=== PATIENT | female | born 1940 | race African-American/Black ===

== ENCOUNTER 2017-03-23 11:37 | Emergency (ER) | payer OTHER ==
[~2017-03-23] VITALS: Ht 165.1 cm; Wt 79.4 kg
[2017-03-23] MEDS ORDERED: BP pill (12:11)
[2017-03-23] MEDS ORDERED: HYDROCHLOROTHIA25 MG ORAL (12:11)
[2017-03-23] MEDS ORDERED: [UNRECOGNIZED DRUG - REMARK] (12:11)
[2017-03-23 12:41] LABS: BASOPHILS % (AUTO) 1.5 % (0.0-2.0); EOSINOPHILS % (AUTO) 4.2 % (0.0-3.0); LYMPHOCYTES % (AUTO) 34.3 % (20.0-45.0); MEAN CORPUSCULAR HEMOGLOBIN 31.5 PG (27.0-31.0); MEAN CORPUSCULAR HGB CONC 33.7 G/DL (32.0-36.0); MEAN CORPUSCULAR VOLUME 94 FL (80-99); MEAN PLATELET VOLUME 7.9 FL (6.5-10.1); PLATELET COUNT 219 K/UL (150-450); RED BLOOD COUNT 3.74 M/UL (4.20-5.40); RED CELL DISTRIBUTION WIDTH 12.7 % (11.6-14.8); WHITE BLOOD COUNT 5.9 K/UL (4.8-10.8)
[2017-03-23 12:52] LABS: TROPONIN I < 0.30 ng/mL (<=0.30)
[2017-03-23 12:53] LABS: ALANINE AMINOTRANSFERASE 11 U/L (3-33); ALBUMIN/GLOBULIN RATIO 1.2 (1.0-2.7); ANION GAP 11 (5-15); ASPARTATE AMINO TRANSFERASE 14 U/L (5-40); CALCIUM 9.4 mg/dL (8.6-10.2); CARBON DIOXIDE 27 mEQ/L (20-30); CHLORIDE 100 mEQ/L (98-107); CREATININE 1.2 mg/dL (0.5-0.9); HEMOLYSIS 5; POTASSIUM 3.7 mEQ/L (3.4-4.9); SODIUM 138 mEQ/L (135-145); TOTAL PROTEIN 6.9 g/dL (6.6-8.7)
[2017-03-23 13:03] LABS: CKMB 4.1 ng/mL (< 3.8)
[2017-03-23] MEDS ORDERED: TYLENOL EXTRA500 MG ORAL (13:10)
[2017-03-23 13:17] VITALS: BP 102/58
[2017-03-23 13:20] VITALS: BP 102/58
--- NOTE | 2017-03-23 14:15 | Diagnostic Imaging Report ---
Indication: Dyspnea Comparison: None A single view chest radiograph was obtained. Findings: No definite infiltrate or pulmonary vascular congestion identified. The heart is enlarged. The aorta is mildly enlarged consistent with atherosclerotic vascular disease. The bones are osteopenic. Impression: No acute disease
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
== END 2017-03-23 13:22 | disposition home or self-care (01) ==
LOC: EDBD 11:37 → EMR 13:10
DX: R07.89 Other chest pain (principal); I10 Essential (primary) hypertension; R01.1 Cardiac murmur, unspecified; V43.52XA Car driver injured in collision with other type car in traffic accident, initial encounter; Y92.410 Unspecified street and highway as the place of occurrence of the external cause
CPT/HCPCS: 36415; 71010; 80053; 82550; 82553; 83880; 84484; 85025; 93005; 99283

== ENCOUNTER 2019-10-29 14:46 | Emergency (ER) | payer OTHER ==
[~2019-10-29] VITALS: Ht 165.1 cm; Wt 79.4 kg
[~2019-10-29 14:46] MED LIST: BP pill; HYDROCHLOROTHIA25 MG ORAL; TYLENOL EXTRA500 MG ORAL; [UNRECOGNIZED DRUG - REMARK]
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
[2019-10-29 15:11] VITALS: BP 135/81
[2019-10-29] MEDS ORDERED: MUPIROCIN15 GM TOPIC (15:22)
[2019-10-29] MEDS ORDERED: TYLENOL EXTRA500 MG ORAL (15:22)
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
[2019-10-29 15:28] VITALS: BP 135/81
--- NOTE | 2019-10-29 15:28 | NUR ---
ED Nurse Note: Pt cleared by health care Provider for discharge. DC instructions/prescription was given and explained to pt and verbalized understanding of teachings. All medical deviecs such as ID band removed. Pt is AAO x4, ambulatory and left with all personal belongings.
== END 2019-10-29 15:28 | disposition home or self-care (01) ==
LOC: EMR 15:18
DX: S01.511A Laceration without foreign body of lip, initial encounter (principal); I10 Essential (primary) hypertension; W50.0XXA Accidental hit or strike by another person, initial encounter; Y92.9 Unspecified place or not applicable
CPT/HCPCS: 99283